=== PATIENT | female | born 1995 ===

== ENCOUNTER 2018-10-04 08:41 | Emergency (ER) | payer OTHER ==
[~2018-10-04] VITALS: Ht 152.4 cm; Wt 45.4 kg
[~2018-10-04 08:41] MED LIST: DOCUSATE SODIU100 MG PO; KETO10TA2 PO; Mylicon 125MG PO; OXYC1TAB9 PO; PRENATE ADVANCE PO
== END 2018-10-04 14:33 | disposition home or self-care (01) ==
LOC: ER 08:41
DX: J11.1 Influenza due to unidentified influenza virus with other respiratory manifestations (principal)

== ENCOUNTER 2018-10-06 14:20 | Emergency (ER) | payer OTHER ==
[~2018-10-06] VITALS: Ht 152.4 cm; Wt 44.5 kg
[2018-10-06] MEDS ORDERED: OSEL75CA (14:40)
[2018-10-06] MEDS ORDERED: TESSALON PERLE100 M1 (14:40)
[2018-10-06] MEDS ORDERED: PNEU16DI2 (14:41)
== END 2018-10-06 18:43 | disposition home or self-care (01) ==
LOC: ER 14:20
DX: K29.60 Other gastritis without bleeding (principal)